=== PATIENT | male | born 1940 | race Caucasian/White ===

== ENCOUNTER 2020-11-13 09:29 | Inpatient (IN) | payer MEDICARE ==
--- NOTE | 2020-11-13 10:07 | RAD ---
EXAM: Single view of the chest HISTORY: Left pneumothorax COMPARISON: CT chest 11/12/2020 FINDINGS: Single view of the chest shows an enlarged cardiomediastinal silhouette. The patient is st atus post aortic valve repair. There may be a small left pleural effusion. No obvious pneumothorax is visualized. No acute osseous abnormality. IMPRESSION: Possible small left pleural effusion without visualization of the left-sided pneumothorax seen on CT
[2020-11-13] MEDS ORDERED: hydrALAZINE 20 MG/ML VIAL SLOW IVP PRN (11:32)
[2020-11-13] MEDS ORDERED: Dextrose 50% Abboject 50 ML SYRINGE SLOW IVP PRN (11:32)
[2020-11-13] MEDS ORDERED: Cyclobenzaprine 10 MG TAB PO PRN (11:32)
[2020-11-13] MEDS ORDERED: Sodium Chloride 0.9% 1,000 ML IV SCH (11:32)
[2020-11-13] MEDS ORDERED: Ondansetron ODT 4 MG TAB PO PRN (11:32)
[2020-11-13] MEDS ORDERED: Ondansetron PF 4 MG/2 ML Vial IVP PRN (11:32)
[2020-11-13] MEDS ORDERED: Dextrose 5% in Water 1,000 ML IV PRN (11:32)
[2020-11-13] MEDS ORDERED: traMADol HCl 50 MG TAB PO PRN ×3 (11:32→17:21)
[2020-11-13] MEDS ORDERED: Morphine 4 MG/ML VIAL ONE (11:40)
[2020-11-13] MEDS ORDERED: Acetaminophen 325 MG TAB ONE (13:43)
[2020-11-13] MEDS: Acetaminophen 325 MG TAB PO SCH ×2 (13:52→18:36)
--- NOTE | 2020-11-13 14:58 | HP ---
HISTORY OF PRESENT ILLNESS: Mr. Coronado is an 80-year-old man, who apparently slipped and fell on ice yesterday landing on his left side. The patient is complaining of left-sided chest wall pain. He underwent a CT scan of the chest yesterday, which revealed multiple left-sided rib fractures with small underlying pneumothorax. He was transferred from [facility] to [place], [place] today complaining of 7 to 8/10 left-sided chest wall pain when he takes a deep breath. He denies any syncope or dyspnea. He denies any abdominal pain. PAST MEDICAL HISTORY: Pertinent for chronic atrial fibrillation, essential hypertension, type 2 diabetes mellitus, and hypothyroidism. 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 FAMILY HISTORY: Noncontributory for this patient's age. CURRENT MEDICATIONS: Include, 1. Levothyroxine 100 mcg p.o. daily. 2. Levocetirizine 5 mg p.o. at bedtime. 3. Amlodipine 5 mg p.o. at bedtime. 4. Bumetanide 1 mg p.o. daily. 5. Amiodarone 200 mg p.o. daily. 6. Januvia 50 mg p.o. daily. 7. Warfarin therapy. 8. Losartan 100 mg p.o. daily. 9. Vitamin D3 of 1000 units two times daily. 10. Viagra 100 mg p.o. p.r.n. ALLERGIES: THE PATIENT DENIES ANY KNOWN DRUG ALLERGIES. REVIEW OF SYSTEMS: Ten-point review of systems essentially unremarkable except as stated in past medical history and chief complaint. PHYSICAL EXAMINATION: GENERAL: This reveals an 80-year-old normally developed man, who is otherwise coherent and interactive and appears stated age. The patient is alert and oriented x3. He appears to be in no acute distress at the time of my evaluation. VITAL SIGNS: Include blood pressure 126/77, pulse is 75 and irregular, respiratory rate is 16, temperature is 98.5 degrees Fahrenheit, oxygen saturation is 91% on room air. HEENT: Pupils are equal, round, reactive to light and accommodation. He has no jugular venous distention noted. HEART: Reveals irregular rate and irregular rhythm. LUNGS: Reveals decrease left basilar breath sounds. Breathing is otherwise regular and nonlabored. He has a chest wall tenderness on the left. No palpable crepitants. ABDOMEN: Soft, nontender, nondistended. Liver and spleen nonpalpable below costal margins. EXTREMITIES: Reveal 2+ radial and pedal pulses bilaterally. No ankle edema is present. NEUROLOGIC: Reveals no focal deficits present. LABORATORY FINDINGS: Today include a CBC with 14,800 white blood cells, hemoglobin and hematocrit 15.7 and 49.8 respectively. Platelet count 159,000. PT and INR 25.4 seconds and 2.3 respectively. Metabolic profile; sodium 140, potassium 4.4, chloride is 103, bicarb 25, BUN 30, creatinine is 1.79. This appears to be the patient's baseline creatinine. Glucose is 141. AST and ALT normal at 20 and 27 respectively. The aforementioned laboratory studies from [facility] obtained yesterday. I have reviewed the CT scan of the chest, abdomen, and pelvis obtained on 11/12/2020 in [place]. This is pertinent for multiple left-sided rib fractures involving ribs 4 through 10 on the left. There is a small left apical pneumothorax present. No significant pneumothorax present. No acute intraabdominal pathology is present. CT scan of the thoracic and lumbar spine revealed no fractures or dislocation. Repeat chest x-ray today reveals no residual pneumothoraces. There is, however, volume loss, which is likely secondary to atelectasis. IMPRESSIONS: 1. Status post ground level fall post-injury day #1. 2. Multiple left rib fractures involving ribs 4 through 10. 3. Posttraumatic pain syndrome. 4. Pulmonary atelectasis. 5. History of chronic fibrillation. 6. History of type 2 diabetes mellitus. PLAN: 1. We will optimize pain management and initiate pulmonary toilet. 2. We will increase activity per Physical and Occupational therapy. 3. We will resume home medications at this time. Anticipate discharge within the next 24 to 48 hours once pain control is achieved. 4. Above findings and plan discussed with the patient and his adult son at bedside. 5. They both indicated understanding of the information provided. 6. I have answered their questions. Job ID: [id number]
[2020-11-13 16:09] VITALS: BMI 24.3
[2020-11-13] MEDS: traMADol HCl 50 MG TAB PO SCH (18:34)
[2020-11-13] MEDS: Gabapentin 100 MG CAP PO SCH (20:25)
[2020-11-14] MEDS: traMADol HCl 50 MG TAB PO SCH ×5 (00:15→18:21)
[2020-11-14] MEDS: Acetaminophen 325 MG TAB PO SCH ×4 (00:19→20:05)
[2020-11-14 06:40] LABS: Anion Gap 12 mmol/L (10-20); BUN (Urea Nitrogen) 26 mg/dL (8.4-25.7); Calc. Creatinine Clearance 43 mL/min (70-130); Calcium 8.4 mg/dL (7.8-10.44); Carbon Dioxide 24 mmol/L (23-31); Chloride 105 mmol/L (98-107); Glucose 147 mg/dL (83-110); Magnesium 2.1 mg/dL (1.6-2.6); Phosphorus 2.5 mg/dL (2.3-4.7); Potassium 4.4 mmol/L (3.5-5.1); Sodium 137 mmol/L (136-145)
[2020-11-14 07:11] LABS: #Eosinphils 0.1 thou/uL (0.0-0.7); #Lymphocytes 0.6 thou/uL (1.20-3.40); #Monocytes 1.3 thou/uL (0.11-0.59); #Neutrophils 9.4 thou/uL (1.40-6.50); %Basophils 0.1 % (0.0-1.0); %Eosinophils 0.9 % (0.0-10.0); %Lymphocytes 4.8 % (21.0-51.0); %Monocytes 11.5 % (0.0-10.0); %Neutrophils 82.7 % (42.0-75.0); Band 1 % (5-11); Hemoglobin 12.8 g/dL (14.0-18.0); Lymphocytes 6 % (21-51); MDiff Complete? YES; Mean Corpuscular HGB CONC 32.6 g/dL (32.0-36.0); Mean Corpuscular Hemoglobin 30.1 pg (27.0-31.0); Mean Corpuscular Volume 92.4 fL (78.0-98.0); Mean Platelet Volume 9.2 fL (7.4-10.4); Monocytes 11 % (0-10); Neutrophil 75 % (42-75); Platelet Count 108 thou/uL (130-400); Platelet Morphology Comment Appears Decreased; Polychromasia SLIGHT = 2-3 cells (100X) (0-2/hpf); RBC Distribution Width 14.1 % (11.5-14.5); Reactive Lymphocytes 7 % (0-10); Red Blood Cell (RBC) Count 4.24 mill/uL (4.70-6.10); White Blood Cell (WBC) Count 11.4 thou/uL (4.8-10.8)
[2020-11-14] MEDS ORDERED: Sodium Phosphate 30 MMOL in Sodium Chloride 0.9% 250 ML 250 ML IVPB SCH (07:30)
[2020-11-14] MEDS: Famotidine 20 MG TAB PO SCH (08:51)
[2020-11-14] MEDS: Gabapentin 100 MG CAP PO SCH ×3 (08:52→20:06)
[2020-11-14] MEDS ORDERED: Enoxaparin Sodium 30 MG/0.3 ML SYRINGE SC SCH (09:00)
[2020-11-14] MEDS ORDERED: Cyclobenzaprine 10 MG TAB PO PRN (09:00)
--- NOTE | 2020-11-14 09:26 | RAD ---
Exam: Chest one view HISTORY:Rib fracture. Hypoxia. Comparison: 11/13/2020 FINDINGS: Cardiac silhouette:Normal cardiac silhouette. Stable sternotomy wires Aorta: Atherosclerosis Pulmonary vessels: Normal Costophrenic angles: Small left effusion LUNGS: Opacity left lung base due to pneumonia or atelectasis or aspiration. Pneumothorax: None Osseous abnormalities: None IMPRESSION: 1. Pleural parenchymal changes left lung base. 2. Atherosclerosis
[2020-11-14 10:03] LABS: INR-International Normal Ratio 1.9; Prothrombin Time 21.8 sec (12.0-14.7)
[2020-11-14] MEDS ORDERED: WARFARIN IVPB PRN (12:30)
--- NOTE | 2020-11-14 14:49 | PRG ---
DATE OF SERVICE: 11/14/2020 Mr. Coronado is an 80-year-old man, who apparently slipped and fell on ice. The patient landed on his left side sustaining multiple rib fractures including ribs 4 through 10. This morning, he reports left-sided chest wall pain, which impairs his ability to take a deep breath or cough. His urinary output is adequate for his age and weight. The patient is tolerating oral intake, although he reports poor appetite this morning. OBJECTIVE: VITAL SIGNS: This morning include blood pressure 129/76, pulse 74, respiratory rate is 18, maximum temperature since admission is 98.4 degrees Fahrenheit, and oxygen saturation 94% on 3.5 L of nasal cannula oxygen. HEENT: Pupils are equal, round, and reactive to light and accommodation. HEART: Reveals irregular rate and rhythm. LUNGS: Reveals scattered rhonchi. Breathing, regular and unlabored. He has a poor cough effort. ABDOMEN: Soft, nontender, and nondistended. NEUROLOGIC: Reveals no focal deficits present. LABORATORY FINDINGS: Include CBC with 11,400 white blood cells, hemoglobin and hematocrit are 12.8 and 39.2 respectively, and the platelet count 108,000. Metabolic profile; sodium 137, potassium 4.4, chloride is 105, bicarb is 24, BUN 26, creatinine is 1.44, glucose is 147, phosphorus 2.5, and magnesium is 2.1. Note that, the patient's creatinine is at baseline. I personally reviewed the chest x-ray, which was obtained this morning, which reveals left basilar atelectasis. No pneumothorax or significant pleural effusion present. IMPRESSION: 1. Post injury day #2, status post ground level fall. 2. Multiple left rib fractures involving ribs 4 through 10. 3. Left pulmonary atelectasis. 4. Chronic kidney disease, stage 3. 5. Type 2 diabetes mellitus. PLAN: 1. Optimize pain control and increase activity and pulmonary toilet. 2. The patient has been encouraged to take deep breaths in and cough once we optimize his pain control in order to minimize his risk for pneumonia. 3. The patient indicates understanding information provided. 4. I have answered his questions. Job ID: [id number]
[2020-11-14] MEDS: Warfarin Sodium 1.5 MG TAB PO SCH (18:20)
[2020-11-15] MEDS: traMADol HCl 50 MG TAB PO SCH ×4 (00:19→17:49)
[2020-11-15] MEDS: Acetaminophen 325 MG TAB PO SCH ×4 (02:09→19:28)
[2020-11-15 05:51] LABS: INR-International Normal Ratio 1.6; Prothrombin Time 19.5 sec (12.0-14.7)
[2020-11-15] MEDS ORDERED: Warfarin Sodium 1.5 MG TAB PO SCH ×2 (09:00→17:00)
[2020-11-15] MEDS: Gabapentin 100 MG CAP PO SCH ×3 (09:57→21:15)
[2020-11-15] MEDS: Famotidine 20 MG TAB PO SCH (09:57)
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
[2020-11-15] MEDS ORDERED: Acetaminophen/Codeine 30-300mg Tablet PO PRN (14:35)
[2020-11-15] MEDS: Warfarin Sodium 2.5 MG TAB PO SCH (17:49)
[2020-11-15 20:33] LABS: SARS-CoV-2 PCR by NAA Indeterminate (NotDetected)
[2020-11-15] MEDS: Loratadine 10 MG TAB PO SCH (21:15)
[2020-11-15] MEDS: Amiodarone 200 MG TAB PO SCH (21:15)
[2020-11-16] MEDS: Acetaminophen 325 MG TAB PO SCH ×4 (00:30→18:05)
[2020-11-16] MEDS: traMADol HCl 50 MG TAB PO SCH ×4 (00:30→17:14)
--- NOTE | 2020-11-16 02:15 | PRG ---
DATE OF SERVICE: 11/16/2020 Mr. Coronado is an 80-year-old male with rib fractures on left side 4 through 10. Patient is on rib fracture pain protocol. The patient's IS at day was at 750. During the evening rounds, patient is only to get incentive spirometer up to 500. I educated the patient about how to use incentive spirometer and repositioned the patient in bed last night. Patient is on room air when I was in the room. Pulse 77, respiratory rate of 18, O2 saturation 93. Job ID: [id number] [facility]
[2020-11-16] MEDS: Levothyroxine Sodium 100 MCG TAB PO SCH (05:22)
[2020-11-16 05:51] LABS: INR-International Normal Ratio 1.8; Prothrombin Time 21.3 sec (12.0-14.7)
[2020-11-16 07:51] LABS: #Eosinphils 0.3 thou/uL (0.0-0.7); #Lymphocytes 0.8 thou/uL (1.20-3.40); #Monocytes 1.4 thou/uL (0.11-0.59); #Neutrophils 9.3 thou/uL (1.40-6.50); %Basophils 0.1 % (0.0-1.0); %Eosinophils 2.7 % (0.0-10.0); %Lymphocytes 6.4 % (21.0-51.0); %Monocytes 12.2 % (0.0-10.0); %Neutrophils 78.6 % (42.0-75.0); Hemoglobin 12.6 g/dL (14.0-18.0); Mean Corpuscular Hemoglobin 30.7 pg (27.0-31.0); Mean Corpuscular Volume 92.9 fL (78.0-98.0); Platelet Count 119 thou/uL (130-400); White Blood Cell (WBC) Count 11.8 thou/uL (4.8-10.8)
[2020-11-16 07:58] LABS: Anion Gap 12 mmol/L (10-20); BUN (Urea Nitrogen) 24 mg/dL (8.4-25.7); Calc. Creatinine Clearance 40 mL/min (70-130); Calcium 8.4 mg/dL (7.8-10.44); Carbon Dioxide 25 mmol/L (23-31); Chloride 104 mmol/L (98-107); Glucose 146 mg/dL (83-110); Phosphorus 3.3 mg/dL (2.3-4.7); Potassium 4.5 mmol/L (3.5-5.1); Sodium 136 mmol/L (136-145)
--- NOTE | 2020-11-16 08:05 | RAD ---
Exam: Chest one view HISTORY:Hypoxia after fall. Follow-up exam. Comparison: 11/14/2020 FINDINGS: Cardiac silhouette:Normal cardiac silhouette. There are sternotomy wires. Aorta: Atherosclerosis Pulmonary vessels: Normal Costophrenic angles: Small left pleural effusion. LUNGS: Image lung volumes, possibly due to a poor inspiratory effort. There is consolidation left inf rahilar region which may represent atelectasis, pneumonia or aspiration. Pneumothorax: None Osseous abnormalities: None rib fractures are difficult to appreciate on the current exam IMPRESSION: 1. Left pleural effusion with adjacent left lower lobe consolidation which may represent atelectasis, pneumonia or aspiration
[2020-11-16] MEDS: Famotidine 20 MG TAB PO SCH (09:13)
[2020-11-16] MEDS: Amlodipine 5 MG TAB PO SCH (09:13)
[2020-11-16] MEDS: Bumetanide 1 MG TAB PO SCH (09:14)
[2020-11-16] MEDS: Gabapentin 100 MG CAP PO SCH ×3 (09:14→21:17)
[2020-11-16] MEDS ORDERED: Dexamethasone 6 MG in Sodium Chloride 0.9% 50 ML IVPB SCH (10:00)
--- NOTE | 2020-11-16 10:46 | PRG ---
DATE OF SERVICE: 11/16/2020 SUBJECTIVE: Mr. Coronado is an 80-year-old man, who was admitted on 11/13/2020 following a ground level fall one day before admission. The patient sustained multiple left-sided rib fractures involving ribs 4 through 10. He is awake and alert this morning, reporting better pain control. He is on nasal cannula oxygen 3.5 L. Urinary output remains adequate for the patient's age and weight. He tolerates general diet. OBJECTIVE: VITAL SIGNS: Includes blood pressure is 112/80, pulse 78, respiratory rate is 16, maximum temperature in the last 24 hours is 99 degrees Fahrenheit, oxygen saturation 93% on 3.5 L nasal cannula oxygen. HEENT: Pupils are equal, round, reactive to light and accommodation. He has no jugular venous distention noted. HEART: Reveals regular rate and rhythm. LUNGS: Reveals diminished left-sided basilar breath sounds. Breathing is otherwise regular and nonlabored. ABDOMEN: Soft, nontender, nondistended. NEUROLOGIC: Reveals no focal deficits present. LABORATORY FINDINGS: Include a CBC with stable white blood cell count of 11,800, hemoglobin and hematocrit also stable at 12.6 and 38.1 respectively. Platelet count is 119,000. Metabolic profile; sodium 136, potassium 4.5, chloride is 104, bicarb is 25, BUN and creatinine stable at 24 and 1.56 respectively and this is the patient's baseline creatinine. Glucose 146, magnesium 2.0, and phosphorus 3.3. I have personally reviewed the chest x-ray, which was obtained this morning, which reveals left-sided pleural opacification. No pneumothorax present. COVID-19 test which was obtained yesterday was deemed indeterminate. I have personally reviewed the noncontrast repeat chest CT scan this morning, which is pertinent for left basilar pulmonary atelectasis with some consolidation. No significant pleural effusion or pneumothorax is present. IMPRESSIONS: 1. Post injury day #4, status post ground level fall. 2. Multiple left rib fractures involving ribs 4 through 10. 3. Acute pulmonary insufficiency secondary to #2. PLAN: 1. Increase pulmonary toilet and bronchodilator therapy. 2. Activity will be increased as tolerated per Physical and Occupational therapy. 3. We will repeat the COVID-19 test and initiate appropriate regimen if COVID-19 pneumonia is determined. 4. Continue with pharmacological and nonpharmacological VTE prophylaxis. 5. Above findings and plan discussed with the patient who indicates understanding of information provided. I answered his questions. Job ID: [id number]
--- NOTE | 2020-11-16 10:53 | CT ---
CT CHEST WITHOUT CONTRAST: INDICATION: Left chest pain. Fall 4 days ago. Pulmonary insufficiency. FINDINGS: Small left pleural effusion. Dense atelectasis/consolidation in the left lower lobe posteriorly. Confluent atelectasis and/or consolidation is also seen in the posterior right lower lobe, although l ess extensive than on the left. Upper lungs are clear. No pneumothorax. Evaluation of the osseous structures showed numerous left-sided rib fractures. There are minimally d isplaced fractures involving the lateral left 3rd, 4th, 5th, 6th, 7th, 8th, and 9th ribs identified. The thoracic vertebrae maintain height and alignment. There are degenerative changes in the thoracic spine with degenerative disk changes. Postop sternotomy change. Images through the upper abdomen are unremarkable. IMPRESSION: 1. Multiple left side rib fractures as described above. 2. Dense atelectasis/consolidation with air bronchograms in the posterior left lower lobe with small left effusion. 3. Mild left basilar atelectasis or infiltrate in the posterior right lung base. POS: AGW
[2020-11-16] MEDS: Warfarin Sodium 1.5 MG TAB PO SCH (17:14)
[2020-11-16] MEDS: Loratadine 10 MG TAB PO SCH (21:17)
[2020-11-16] MEDS: Amiodarone 200 MG TAB PO SCH (21:17)
[2020-11-16 21:53] LABS: SARS-CoV-2 PCR by NAA DETECTED (NotDetected)
[2020-11-17] MEDS: traMADol HCl 50 MG TAB PO SCH ×5 (00:49→23:07)
[2020-11-17] MEDS: Acetaminophen 325 MG TAB PO SCH ×5 (00:50→23:08)
[2020-11-17] MEDS: Senokot 8.6 MG TAB PO SCH ×2 (00:51→20:25)
--- NOTE | 2020-11-17 01:32 | PRG ---
DATE OF SERVICE: 11/17/2020 SUBJECTIVE: Mr. Coronado is an 80-year-old male, status post ground level fall; rib fractures, left side [address] was done today, which shows dense atelectasis, consolidation with air bronchograms, left lower lobe, small left effusion. Mild left basal atelectasis, infiltrates, posterior lung base. The patient had a repeat COVID test, which was inconclusive. Repeat COVID test is positive. The patient's pain regimen was adjusted again today and bronchodilator therapy was adjusted as well. The patient is resting comfortably in bed, no acute distress. O2 saturation 94% on 3 L nasal cannula. Increases to O2 saturation of 96% when coughing. OBJECTIVE: VITAL SIGNS: Temperature 98.2, pulse 92, respiratory rate 18, O2 saturation 94% on 3 L, and blood pressure 131/81. GENERAL: The patient is sitting upright in bed, in no acute distress. Breathing comfortably. No pain. LUNGS: No wheezes or crackles. CARDIAC: Normal sinus rhythm. PLAN: Continue incentive spirometer. Repeat COVID labs in the a.m., order convalescent plasma transfused. Continue mechanical and pharmacological DVT prophylaxis. Job ID: [id number] [facility]
[2020-11-17] MEDS: Levothyroxine Sodium 100 MCG TAB PO SCH (05:22)
[2020-11-17 07:18] LABS: #Lymphocytes 0.4 thou/uL (1.20-3.40); #Monocytes 0.9 thou/uL (0.11-0.59); #Neutrophils 8.9 thou/uL (1.40-6.50); %Basophils 0.1 % (0.0-1.0); %Eosinophils 0.3 % (0.0-10.0); %Lymphocytes 3.7 % (21.0-51.0); %Neutrophils 86.8 % (42.0-75.0); Hemoglobin 11.3 g/dL (14.0-18.0); Mean Corpuscular HGB CONC 32.2 g/dL (32.0-36.0); Mean Corpuscular Hemoglobin 29.5 pg (27.0-31.0); Mean Corpuscular Volume 91.8 fL (78.0-98.0); Mean Platelet Volume 9.1 fL (7.4-10.4); Platelet Count 133 thou/uL (130-400); Red Blood Cell (RBC) Count 3.84 mill/uL (4.70-6.10); White Blood Cell (WBC) Count 10.2 thou/uL (4.8-10.8)
[2020-11-17 07:21] LABS: Prothrombin Time 22.6 sec (12.0-14.7)
[2020-11-17 07:23] LABS: D-Dimer Test 2.85 *mcg/mL (0.27-0.43)
[2020-11-17 07:37] LABS: Anion Gap 13 mmol/L (10-20); BUN (Urea Nitrogen) 33 mg/dL (8.4-25.7); Calc. Creatinine Clearance 36 mL/min (70-130); Calcium 8.8 mg/dL (7.8-10.44); Carbon Dioxide 25 mmol/L (23-31); Chloride 101 mmol/L (98-107); Glucose 231 mg/dL (83-110); Magnesium 2.3 mg/dL (1.6-2.6); Phosphorus 3.3 mg/dL (2.3-4.7); Potassium 4.3 mmol/L (3.5-5.1); Sodium 135 mmol/L (136-145)
[2020-11-17] MEDS: Bumetanide 1 MG TAB PO SCH (08:40)
[2020-11-17] MEDS: Famotidine 20 MG TAB PO SCH (08:40)
[2020-11-17] MEDS: Gabapentin 100 MG CAP PO SCH ×3 (08:41→20:25)
[2020-11-17] MEDS: Docusate 100 MG CAP PO SCH ×2 (08:43→20:27)
[2020-11-17] MEDS: Cholecalciferol (Vitamin D3) 400 UNITS TAB PO SCH (08:43)
[2020-11-17] MEDS: Amlodipine 5 MG TAB PO SCH (08:43)
[2020-11-17] MEDS ORDERED: Dexamethasone 6 MG in Sodium Chloride 0.9% 50 ML IVPB SCH (09:00)
[2020-11-17] MEDS: Mometasone 100 MCG/Formoterol 5 MCG 120 PUFF INHALER INH SCH (17:07)
[2020-11-17] MEDS: Warfarin Sodium 2.5 MG TAB PO SCH (17:07)
[2020-11-17] MEDS: Amiodarone 200 MG TAB PO SCH (20:26)
[2020-11-17] MEDS: Loratadine 10 MG TAB PO SCH (20:27)
--- NOTE | 2020-11-18 00:35 | PRG ---
DATE OF SERVICE: 11/17/2020 SUBJECTIVE: Mr. Coronado is an 80-year-old male who was seen to have multiple left-sided rib fracture 4 through 10. He is awake and alert. No acute distress. Actually was able to turn his oxygen off this morning. Of note, he was COVID positive. He has been moved to 4th floor, received 1 unit of convalescent plasma. He is on dexamethasone as well as zinc and vitamin D currently. States his pain is generally under control. He has been ambulating and doing well. He remains hemodynamically stable otherwise. OBJECTIVE: VITAL SIGNS: Temperature is 97.5, blood pressure is 169/84, heart rate is 84, respiratory rate is 16, saturating 98% on room air. GENERAL: This is 80-year-old male, sitting up in no acute distress. HEENT: Normocephalic, atraumatic. RESPIRATORY: Equal rise and fall. No respiratory distress. Getting close to 1500 on his IS. No wheezes, no rhonchi. Clear lung sounds. CARDIOVASCULAR: Regular rate and rhythm. ABDOMEN: Soft. PELVIS: Stable. MUSCULOSKELETAL: Moves extremities well. PSYCH: Normal mood and affect. NEURO: Alert and oriented to person, place, time, and event. and GCS of 15. DIAGNOSTIC STUDIES: LABORATORY RESULTS: White blood cell count 10.2, platelets 133, hemoglobin and hematocrit 11.3 and 35.2 respectively. His INR is 2.0. D-dimer is 2.85 and a PT of 22.6. Sodium is 135, potassium 4.3, chloride is 101, CO2 is 25, BUN of 33, creatinine is 1.74, glucose is 231. CRP is 1963. IMAGING: CT scan showed multiple left-sided rib fractures described above. Dense atelectasis consolidation with air bronchograms in the posterior left lobe. Small effusion, likely hemothorax. Mild left basilar atelectasis and infiltrates in the right lobe. ASSESSMENT: 1. Post injury day #5, status post ground level fall. 2. Multiple left rib fractures 4 through 10. 3. Acute pulmonary insufficiency, likely #2. 4. SARS COVID-19 positive without true evidence of COVID pneumonia. PLAN: 1. Continue pulmonary toilet. 2. Wean oxygen as necessary, continue with PT/OT. 3. We will repeat chest x-ray tomorrow, make sure that his hemothorax is not getting bigger. Given he is on Coumadin, which I think may be prudent given his COVID diagnosis. 4. Continue all other supportive care. Hope to plan discharge planning in the ensuing days. Job ID: [id number]
[2020-11-18] MEDS: Mometasone 100 MCG/Formoterol 5 MCG 120 PUFF INHALER INH SCH ×2 (05:45→18:11)
[2020-11-18] MEDS: Levothyroxine Sodium 100 MCG TAB PO SCH (05:46)
[2020-11-18] MEDS: traMADol HCl 50 MG TAB PO SCH ×3 (05:46→17:17)
[2020-11-18] MEDS: Acetaminophen 325 MG TAB PO SCH ×3 (05:48→18:10)
[2020-11-18 06:56] LABS: Anion Gap 13 mmol/L (10-20); BUN (Urea Nitrogen) 42 mg/dL (8.4-25.7); Calc. Creatinine Clearance 37 mL/min (70-130); Calcium 8.8 mg/dL (7.8-10.44); Carbon Dioxide 25 mmol/L (23-31); Chloride 102 mmol/L (98-107); Glucose 182 mg/dL (83-110); Magnesium 2.3 mg/dL (1.6-2.6); Phosphorus 3.6 mg/dL (2.3-4.7); Potassium 4.2 mmol/L (3.5-5.1); Sodium 136 mmol/L (136-145)
[2020-11-18] MEDS: Bumetanide 1 MG TAB PO SCH (09:20)
[2020-11-18] MEDS: Famotidine 20 MG TAB PO SCH (09:20)
[2020-11-18] MEDS: Amlodipine 5 MG TAB PO SCH (09:20)
[2020-11-18] MEDS: Dexamethasone Sod Phosphate 6 MG in Sodium Chloride 0.9% 50 ML IVPB SCH (09:20)
[2020-11-18] MEDS: Cholecalciferol (Vitamin D3) 400 UNITS TAB PO SCH (09:21)
[2020-11-18] MEDS: Gabapentin 100 MG CAP PO SCH ×3 (09:21→20:06)
[2020-11-18] MEDS: Docusate 100 MG CAP PO SCH ×2 (09:22→20:07)
--- NOTE | 2020-11-18 09:35 | RAD ---
PORTABLE CHEST: COMPARISON: 11/16/2020 exam. FINDINGS: Heart size is slightly enlarged. Postop sternotomy change of what appears to be some type of valve r eplacement. The lungs are clear of any infiltrative process. There is some slight increased density in the left base which his probably related to small effusion and atelectasis which was noted on a p revious CT. I do not see any signs of pneumothorax. Left-sided rib fractures are somewhat difficult to appreciate on this exam. IMPRESSION: Some persistent pleural and parenchymal changes in the left lung base. No signs for pneumothorax. POS: OFF
[2020-11-18] MEDS ORDERED: Milk Of Magnesia 30 ML UDCUP PO SCH (12:30)
--- NOTE | 2020-11-18 17:33 | PRG ---
DATE OF SERVICE: 11/18/2020 SUBJECTIVE: Mr. Coronado is an 80-year-old male, who is hospital day #5 status post ground level fall with multiple left-sided rib fractures. Acute pulmonary insufficiency. SARS-COVID positive. The patient is now off oxygen overnight, stating that he feels better. He is working on IS. He is walking around the room. He did have some delirium overnight and was found walking around the halls looking for his . The patient has no acute distress. States his pain is generally controlled. His chest x-ray is stable appearing and glucose seems to be stabilizing. OBJECTIVE: VITAL SIGNS: Temperature is 97.9, blood pressure is 129/75, heart rate is 71, breathing 20 times per minute, 97% on room air. GENERAL: An 80-year-old male, sitting up, nontoxic appearing. HEENT: Normocephalic, atraumatic. RESPIRATORY: Equal rise and fall. Bilateral breath sounds clear. CARDIOVASCULAR: Strong pulses. ABDOMEN: Soft. MUSCULOSKELETAL: He moves his extremities well. PSYCH: Normal mood and affect. NEURO: Alert and oriented. GCS is 15. SKIN: Warm and dry. LABORATORY DATA: Chemistry; sodium is 136, potassium 4.2, CO2 is 25, chloride is 102, BUN of 42, creatinine is 1.7, glucose is 182, phos is 3.6, mag is 2.3. Chest x-ray demonstrates minimal change on my read. There is some likely a small hemothorax in the left lung base. ASSESSMENT: 1. Post injury day #6, status post ground level fall. 2. Multiple left rib fractures. 3. Acute pulmonary insufficiency secondary to #2 above. 4. SARS-COVID positive without evidence of COVID pneumonia. PLAN: 1. Continue aggressive pulmonary toilet. 2. Continue to work with IS. 3. Oxygen as needed. He was 89% on room air on my visit. Discussed with RN. 4. Continue pain control, PT, OT. Continue insulin treatment as above and hope if he remains off oxygen and oxygen levels remain stable, he will be discharge in the ensuing days. I have discussed at length with the patient about isolating at home for minimum of 10 days after his positive test given his COVID results. Of note, he is scheduled on December 04 for his 2nd COVID-19 vaccine. He does live with his who is at this time COVID negative. Job ID: [id number]
[2020-11-18] MEDS: Warfarin Sodium 1.5 MG TAB PO SCH (18:10)
[2020-11-18] MEDS: Loratadine 10 MG TAB PO SCH (20:07)
[2020-11-18] MEDS: Amiodarone 200 MG TAB PO SCH (20:07)
[2020-11-19] MEDS: Acetaminophen 325 MG TAB PO SCH ×3 (00:37→13:41)
[2020-11-19] MEDS: traMADol HCl 50 MG TAB PO SCH ×4 (00:37→17:44)
[2020-11-19] MEDS: Levothyroxine Sodium 100 MCG TAB PO SCH (06:03)
[2020-11-19] MEDS: Mometasone 100 MCG/Formoterol 5 MCG 120 PUFF INHALER INH SCH ×2 (06:04→18:12)
[2020-11-19 06:47] LABS: INR-International Normal Ratio 2.7; Prothrombin Time 29.3 sec (12.0-14.7)
[2020-11-19] MEDS: Cholecalciferol (Vitamin D3) 400 UNITS TAB PO SCH (08:54)
[2020-11-19] MEDS: Famotidine 20 MG TAB PO SCH (08:54)
[2020-11-19] MEDS: Amlodipine 5 MG TAB PO SCH (08:54)
[2020-11-19] MEDS: Docusate 100 MG CAP PO SCH (08:55)
[2020-11-19] MEDS: Gabapentin 100 MG CAP PO SCH ×2 (08:55→14:42)
[2020-11-19] MEDS: Bumetanide 1 MG TAB PO SCH (08:58)
[2020-11-19] MEDS: Dexamethasone Sod Phosphate 6 MG in Sodium Chloride 0.9% 50 ML IVPB SCH (08:58)
[2020-11-19] MEDS ORDERED: Milk Of Magnesia 30 ML UDCUP PO SCH (09:00)
[2020-11-19 17:02] VITALS: BP 146/90; TEMP 97.8
[2020-11-19] MEDS ORDERED: Warfarin Sodium 3 MG TAB PO SCH (18:15)
[2020-11-19] MEDS: Warfarin Sodium 1.5 MG TAB PO SCH (18:16)
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
[2020-11-21] MEDS ORDERED: Warfarin Sodium 3 MG TAB PO SCH (17:00)
== END 2020-11-19 18:22 | disposition home or self-care (01) | DRG 199 ==
LOC: ERS 09:29 → ERHOLD 11:32 → SJJU 15:35 → T4-A 11-17 00:15
PROVIDERS: ADMIT Surgery; ATTEND Surgery
PROC: XW13325 Transfusion of Convalescent Plasma (Nonautologous) into Peripheral Vein, Percutaneous Approach, New Technology Group 5 (ICD-10-PCS; principal; 2020-11-17)
DX: S27.0XXA Traumatic pneumothorax, initial encounter (principal); J96.01 Acute respiratory failure with hypoxia; U07.1 COVID-19; S22.42XA Multiple fractures of ribs, left side, initial encounter for closed fracture; J98.11 Atelectasis; I48.20 Chronic atrial fibrillation, unspecified; W01.0XXA Fall on same level from slipping, tripping and stumbling without subsequent striking against object, initial encounter; E11.22 Type 2 diabetes mellitus with diabetic chronic kidney disease; N18.30 Chronic kidney disease, stage 3 unspecified; J98.4 Other disorders of lung; I12.9 Hypertensive chronic kidney disease with stage 1 through stage 4 chronic kidney disease, or unspecified chronic kidney disease; E03.9 Hypothyroidism, unspecified; Z95.2 Presence of prosthetic heart valve; Z79.899 Other long term (current) drug therapy; Z79.890 Hormone replacement therapy; Z79.4 Long term (current) use of insulin; Z79.02 Long term (current) use of antithrombotics/antiplatelets
CPT/HCPCS: 36415; 36416; 36430; 71045; 71250; 80048; 83735; 84100; 85025; 85379; 85610; 86140; 86850; 86900; 86901; 87635; 96374; G0390; J1100; J2270; J7050; J7620; P9017; U0003; U0005

== ENCOUNTER 2021-06-25 16:50 | Emergency (ER) | payer OTHER, MEDICARE | END 2021-06-25 20:35 | disposition home or self-care (01) | LOC: ERS 16:50 | DX: S90.02XA Contusion of left ankle, initial encounter (principal); I10 Essential (primary) hypertension; I48.91 Unspecified atrial fibrillation; E11.9 Type 2 diabetes mellitus without complications; W01.0XXA Fall on same level from slipping, tripping and stumbling without subsequent striking against object, initial encounter ==

== ENCOUNTER 2021-06-27 07:24 | Outpatient (CLI) | payer MEDICARE | END 2021-06-27 07:25 | disposition home or self-care (01) | LOC: BICCT 07:24 | PROVIDERS: ATTEND Internal Medicine Cardiovascular Disease | DX: I77.810 Thoracic aortic ectasia (principal) | CPT/HCPCS: 71275; 82565 ==

== ENCOUNTER 2022-11-12 07:49 | Outpatient (CLI) | payer MEDICARE | END 2022-11-12 07:50 | disposition home or self-care (01) | LOC: BICCT 07:49 | PROVIDERS: ATTEND Internal Medicine Cardiovascular Disease | DX: I77.810 Thoracic aortic ectasia (principal); I25.10 Atherosclerotic heart disease of native coronary artery without angina pectoris; E04.1 Nontoxic single thyroid nodule | CPT/HCPCS: 71250 ==

== ENCOUNTER 2023-05-05 08:22 | Outpatient (CLI) | payer MEDICARE | END 2023-05-05 08:23 | disposition home or self-care (01) | LOC: BICMRI 08:22 | PROVIDERS: ATTEND Family Medicine | DX: M51.16 Intervertebral disc disorders with radiculopathy, lumbar region (principal); M47.816 Spondylosis without myelopathy or radiculopathy, lumbar region; M89.38 Hypertrophy of bone, other site | CPT/HCPCS: 72148 ==

== ENCOUNTER 2024-03-13 11:43 | Emergency (ER) | payer MEDICARE | END 2024-03-13 15:10 | disposition home or self-care (01) | LOC: ERS 11:43 | DX: R33.9 Retention of urine, unspecified (principal); I48.91 Unspecified atrial fibrillation; E11.9 Type 2 diabetes mellitus without complications; I10 Essential (primary) hypertension | CPT/HCPCS: 51798; 99283 ==

== ENCOUNTER 2024-03-15 10:01 | Inpatient (IN) | payer MEDICARE ==
[~2024-03-15 10:01] MED LIST: Iopamidol-370 76% 500 ML MDV (1 ML CHARGE) ONE
[2024-03-15] MEDS ORDERED: Dicyclomine 20 MG/2 ML VIAL ONE (10:34)
[2024-03-15 10:40] LABS: #Basophils 0.03 10x3/uL (0.0-0.2); %Basophils 0.2 % (0.0-1.0); %Eosinophils 1.1 % (0.0-10.0); %Lymphocytes 4.5 % (21.0-51.0); %Monocytes 7.2 % (0.0-10.0); %Neutrophils 86.6 % (42.0-75.0); Hematocrit 43.5 % (42.0-52.0); Hemoglobin 14.1 g/dL (14.0-18.0); Mean Corpuscular HGB CONC 32.4 g/dL (32.0-36.0); Mean Corpuscular Hemoglobin 29.4 pg (27.0-31.0); Mean Corpuscular Volume 90.6 fL (78.0-98.0); Mean Platelet Volume 10.4 fL (7.4-10.4); Platelet Count 171 10x3/uL (130-400); RBC Distribution Width 15.3 % (11.5-14.5)
[2024-03-15 10:58] LABS: ALT (SGPT) 23 U/L (8-55); AST (SGOT) 22 U/L (5-34); Albumin 3.7 g/dL (3.4-4.8); Alkaline Phosphatase 68 U/L (40-110); Anion Gap 12 mmol/L (10-20); BUN (Urea Nitrogen) 35 mg/dL (8.4-25.7); Bilirubin, Total 0.7 mg/dL (0.2-1.2); Calc. Creatinine Clearance 0 mL/min (70-130); Calcium 9.5 mg/dL (7.8-10.44); Carbon Dioxide 25 mmol/L (23-31); Chloride 106 mmol/L (98-107); Estimated GFR 42; Globulin 2.8 g/dL (2.4-3.5); Glucose 185 mg/dL (83-110); Lipase 29 U/L (8-78); Magnesium 2.8 mg/dL (1.6-2.6); Potassium 3.9 mmol/L (3.5-5.1); Protein, Total 6.5 g/dL (5.8-8.1); Sodium 139 mmol/L (136-145)
[2024-03-15 11:03] LABS: Troponin I 0.033 ng/mL (< 0.028)
[2024-03-15 11:17] LABS: Bacteria/HPF None Seen HPF (None Seen); Bilirubin Negative (Negative); Blood, Urine 1+ (Negative); CAUTI Indications for Culture Dysuria,urgency,freq; Clarity Turbid (Clear); Glucose, Urine (Dipstick) 30 mg/dL (Negative); Ketone, Urine Negative (Negative); Leukocyte 25 Leu/uL (Negative); Nitrite Negative (Negative); Protein, Urine (Dipstick) 30 mg/dL (Neg-Trace); RBC/HPF 21-50 HPF (0-3); Specific Gravity, Urine 1.018 (1.002-1.036); Squamous Epithelial None Seen HPF (0-3)
[2024-03-15 11:20] LABS: Urine Culture Reflex No No
[2024-03-15] MEDS ORDERED: Aspirin 325 MG TAB ONE (12:28)
[2024-03-15] MEDS ORDERED: Ondansetron PF 4 MG/2 ML Vial ONE (12:29)
[2024-03-15] MEDS ORDERED: Morphine 4 MG/ML VIAL ONE (12:29)
[2024-03-15] MEDS ORDERED: Acetaminophen 650 MG Suppository PR PRN (12:35)
[2024-03-15] MEDS ORDERED: Ondansetron PF 4 MG/2 ML Vial IVP PRN (12:35)
[2024-03-15] MEDS ORDERED: HYDROcodone/Acetaminophen 5/325 mg Tablet PO PRN (12:35)
[2024-03-15] MEDS ORDERED: Acetaminophen 325 MG TAB PO PRN (12:35)
[2024-03-15] MEDS ORDERED: Ondansetron ODT 4 MG TAB PO PRN (12:35)
[2024-03-15] MEDS ORDERED: Nitroglycerin 0.4 MG TAB (25 Tab Bottle) SL PRN (12:37)
[2024-03-15 14:50] LABS: Troponin I 0.035 ng/mL (< 0.028)
[2024-03-15 20:51] VITALS: BMI 22.4
[2024-03-15] MEDS: Loratadine 10 MG TAB PO SCH (21:09)
[2024-03-15] MEDS: Famotidine 20 MG TAB PO SCH (21:09)
[2024-03-15] MEDS: Atorvastatin Calcium 40 MG TAB PO SCH (21:09)
[2024-03-15] MEDS: Senokot S 8.6-50 MG TAB PO SCH (21:09)
[2024-03-15] MEDS: Apixaban 2.5 MG TAB PO SCH (21:09)
[2024-03-16 04:11] LABS: #Basophils 0.03 10x3/uL (0.0-0.2); %Basophils 0.3 % (0.0-1.0); %Eosinophils 1.2 % (0.0-10.0); %Lymphocytes 4.3 % (21.0-51.0); %Monocytes 9.5 % (0.0-10.0); %Neutrophils 84.3 % (42.0-75.0); Hematocrit 40.5 % (42.0-52.0); Mean Corpuscular HGB CONC 32.1 g/dL (32.0-36.0); Mean Corpuscular Hemoglobin 29.4 pg (27.0-31.0); Mean Corpuscular Volume 91.6 fL (78.0-98.0); Mean Platelet Volume 10.7 fL (7.4-10.4); Platelet Count 158 10x3/uL (130-400); RBC Distribution Width 15.2 % (11.5-14.5); Red Blood Cell (RBC) Count 4.42 mill/uL (4.70-6.10)
[2024-03-16 04:19] LABS: Hemoglobin A1c 6.5 % (4.0-6.0)
[2024-03-16 04:55] LABS: Anion Gap 15 mmol/L (10-20); BUN (Urea Nitrogen) 25 mg/dL (8.4-25.7); Calc. Creatinine Clearance 39 mL/min (70-130); Calcium 8.7 mg/dL (7.8-10.44); Carbon Dioxide 22 mmol/L (23-31); Cardiac Risk 3.2 (Less than 4.5); Chloride 108 mmol/L (98-107); Cholesterol 90 mg/dl (< 200 Desired); Estimated GFR 50; Glucose 165 mg/dL (83-110); HDL Cholesterol 28 mg/dL (>60 Neg Risk); LDL Cholesterol, Calculated 43 mg/dL; Potassium 4.3 mmol/L (3.5-5.1); Sodium 141 mmol/L (136-145); Triglycerides 96 mg/dL (Less than 150)
[2024-03-16] MEDS: NIFEdipine XL 60 MG ER.TAB PO SCH (08:43)
[2024-03-16] MEDS: Polyethylene Glycol 3350 17 GM Packet PO SCH (08:43)
[2024-03-16] MEDS: Dextrose 5 % And 0.9 % NaCl 1,000 ML IV SCH (08:43)
[2024-03-16] MEDS: Aspirin 81 mg Enteric Coated Tablet PO SCH (08:44)
[2024-03-16] MEDS: Losartan 25 MG TAB PO SCH (08:44)
[2024-03-16] MEDS: Levothyroxine Sodium 100 MCG TAB PO SCH (08:48)
[2024-03-16] MEDS ORDERED: Aspirin Chewable 81 MG TAB PO SCH (09:00)
[2024-03-16] MEDS ORDERED: NIFEdipine XL 60 MG ER.TAB PO SCH (09:00)
[2024-03-16] MEDS ORDERED: Bacitracin 1 PK TOP PRN (12:45)
[2024-03-16] MEDS: Bacitracin 1 PK TOP SCH (20:17)
[2024-03-17 04:12] VITALS: TEMP 97.7
[2024-03-17] MEDS ORDERED: Levothyroxine Sodium 100 MCG TAB PO SCH (06:00)
[2024-03-17] MEDS: Levothyroxine Sodium 88 MCG TAB PO SCH (06:06)
[2024-03-17 09:26] VITALS: BP 134/87
[2024-03-17] MEDS: Famotidine 20 MG TAB PO SCH (09:34)
[2024-03-17] MEDS ORDERED: NIFEdipine XL 60 MG ER.TAB PO SCH (21:00)
== END 2024-03-17 11:35 | disposition home or self-care (01) | DRG 392 ==
LOC: ERS 10:01 → ERHOLD 12:51 → 2SW 20:14 → OBSVTOIN 03-16 12:46
PROVIDERS: ADMIT Family Medicine; ATTEND Internal Medicine
DX: K59.00 Constipation, unspecified (principal); K40.90 Unilateral inguinal hernia, without obstruction or gangrene, not specified as recurrent; E03.9 Hypothyroidism, unspecified; I48.0 Paroxysmal atrial fibrillation; I25.10 Atherosclerotic heart disease of native coronary artery without angina pectoris; R79.89 Other specified abnormal findings of blood chemistry; E11.22 Type 2 diabetes mellitus with diabetic chronic kidney disease; E78.5 Hyperlipidemia, unspecified; I12.9 Hypertensive chronic kidney disease with stage 1 through stage 4 chronic kidney disease, or unspecified chronic kidney disease; N18.32 Chronic kidney disease, stage 3b; E86.0 Dehydration; Z88.8 Allergy status to other drugs, medicaments and biological substances; Z79.01 Long term (current) use of anticoagulants; Z79.82 Long term (current) use of aspirin; Z95.2 Presence of prosthetic heart valve; Z79.890 Hormone replacement therapy; Z95.5 Presence of coronary angioplasty implant and graft; Z79.84 Long term (current) use of oral hypoglycemic drugs; R33.9 Retention of urine, unspecified; I48.91 Unspecified atrial fibrillation; E11.9 Type 2 diabetes mellitus without complications; I10 Essential (primary) hypertension
CPT/HCPCS: 36415; 36416; 51798; 74177; 80048; 80053; 80061; 81001; 83036; 83605; 83690; 83735; 83880; 84439; 84443; 84484; 85025; 93005; 94760; 96372; 96374; 96375; 99283; G0378; J2270; J2405; J7042; Q9967

== ENCOUNTER 2024-06-30 15:21 | Inpatient (IN) | payer MEDICARE ==
[2024-06-30] MEDS ORDERED: Diltiazem HCl/D5W 125 ML ONE (15:35)
[2024-06-30] MEDS ORDERED: dilTIAZem 25 MG/5 ML VIAL ONE (15:36)
[2024-06-30 15:47] LABS: #Basophils 0.03 10x3/uL (0.0-0.2); %Basophils 0.3 % (0.0-1.0); %Lymphocytes 5.4 % (21.0-51.0); %Monocytes 9.4 % (0.0-10.0); %Neutrophils 83.6 % (42.0-75.0); Hematocrit 41.3 % (42.0-52.0); Hemoglobin 13.2 g/dL (14.0-18.0); Mean Corpuscular Volume 87.7 fL (78.0-98.0); Mean Platelet Volume 10.7 fL (7.4-10.4); Platelet Count 115 10x3/uL (130-400); RBC Distribution Width 16.4 % (11.5-14.5); Red Blood Cell (RBC) Count 4.71 mill/uL (4.70-6.10)
[2024-06-30 15:58] LABS: INR-International Normal Ratio 1.3; PTT 32.7 sec (22.9-36.1); Prothrombin Time 15.8 sec (12.0-14.7)
[2024-06-30 16:03] LABS: Troponin I 0.041 ng/mL (< 0.028)
[2024-06-30] MEDS ORDERED: Amiodarone 150 MG/3 ML VIAL ONE (16:12)
[2024-06-30 16:43] LABS: ALT (SGPT) 18 U/L (8-55); AST (SGOT) 19 U/L (5-34); Albumin 3.4 g/dL (3.4-4.8); Alkaline Phosphatase 78 U/L (40-110); Anion Gap 15 mmol/L (10-20); BUN (Urea Nitrogen) 25 mg/dL (8.4-25.7); Bilirubin, Total 0.5 mg/dL (0.2-1.2); Calc. Creatinine Clearance 0 mL/min (70-130); Calcium 8.5 mg/dL (7.6-10.4); Carbon Dioxide 19 mmol/L (23-31); Chloride 112 mmol/L (98-107); Estimated GFR 54; Globulin 2.4 g/dL (2.4-3.5); Glucose 125 mg/dL (83-110); Potassium 3.5 mmol/L (3.5-5.1); Protein, Total 5.8 g/dL (5.8-8.1); Sodium 142 mmol/L (136-145)
[2024-06-30 17:11] LABS: ALV-art Gradient 84.115 mmHg (0-20); Actual Bicarbonate (HCO3a) 17.9 mEq/L (22-28); CO2 Tension 27.7 mmHg (35.0-45.0); Calcium, Ionized (arterial) 1.09 mmol/L (1.12-1.30); Carboxyhemoglobin (COHb) 0.6 gm% (0.0-3.0); Hematocrit-ABG 38 % (42.0-52.0); O2 Tension (PaO2), arterial 80.9 mmHg (> 60.0); Potassium - ABG Lab 3.61 mmol/L (3.70-5.30); Puncture Site Left Radial artery; pH, Arterial 7.428 (7.35-7.45)
[2024-06-30] MEDS ORDERED: Digoxin 0.5 MG/2 ML AMP ONE (18:05)
[2024-06-30] MEDS ORDERED: Calcium Carbonate 500 MG ChewTAB PO PRN (19:10)
[2024-06-30 19:53] LABS: Troponin I 0.244 ng/mL (< 0.028)
[2024-06-30 22:06] LABS: Troponin I 0.377 ng/mL (< 0.028)
[2024-07-01] MEDS: Amiodarone 450 MG, Admixture Fee 1 EACH in Dextrose 5% in Water 250 ML IVPB SCH (01:20)
[2024-07-01] MEDS ORDERED: Atorvastatin Calcium 40 MG TAB ONE (02:27)
[2024-07-01] MEDS: Apixaban 2.5 MG TAB PO SCH ×3 (02:45→10:12)
[2024-07-01] MEDS: Atorvastatin Calcium 40 MG TAB PO SCH ×3 (02:46→21:04)
[2024-07-01] MEDS: Levothyroxine Sodium 88 MCG TAB PO SCH (05:32)
[2024-07-01 06:32] LABS: #Basophils 0.03 10x3/uL (0.0-0.2); %Basophils 0.4 % (0.0-1.0); %Eosinophils 2.3 % (0.0-10.0); %Lymphocytes 9.8 % (21.0-51.0); %Neutrophils 75.2 % (42.0-75.0); Hematocrit 39.5 % (42.0-52.0); Hemoglobin 12.4 g/dL (14.0-18.0); Mean Corpuscular HGB CONC 31.4 g/dL (32.0-36.0); Mean Corpuscular Hemoglobin 27.7 pg (27.0-31.0); Mean Corpuscular Volume 88.4 fL (78.0-98.0); Mean Platelet Volume 11.7 fL (7.4-10.4); Platelet Count 120 10x3/uL (130-400); RBC Distribution Width 16.7 % (11.5-14.5); Red Blood Cell (RBC) Count 4.47 mill/uL (4.70-6.10)
[2024-07-01 06:35] LABS: ALT (SGPT) 15 U/L (8-55); AST (SGOT) 17 U/L (5-34); Alkaline Phosphatase 62 U/L (40-110); Anion Gap 10 mmol/L (10-20); BUN (Urea Nitrogen) 21 mg/dL (8.4-25.7); Bilirubin, Total 0.7 mg/dL (0.2-1.2); Calc. Creatinine Clearance 46 mL/min (70-130); Calcium 8.5 mg/dL (7.8-10.44); Carbon Dioxide 22 mmol/L (23-31); Chloride 113 mmol/L (98-107); Estimated GFR 54; Globulin 2.1 g/dL (2.4-3.5); Glucose 94 mg/dL (83-110); Magnesium 2.1 mg/dL (1.6-2.6); Potassium 3.9 mmol/L (3.5-5.1); Protein, Total 5.1 g/dL (5.8-8.1); Sodium 141 mmol/L (136-145)
[2024-07-01] MEDS ORDERED: Aspirin Chewable 81 MG TAB ONE (08:59)
[2024-07-01] MEDS: Aspirin 81 mg Enteric Coated Tablet PO SCH (09:02)
[2024-07-01] MEDS: Saxagliptin 2.5 MG TAB PO SCH (10:07)
[2024-07-01 13:37] LABS: Troponin I 0.647 ng/mL (< 0.028)
[2024-07-01] MEDS: Amiodarone 150 MG in Dextrose 5% in Water 100 ML IVPB SCH (17:34)
[2024-07-01 18:04] VITALS: BMI 23.8
[2024-07-01] MEDS ORDERED: Glucagon 1 MG/ML KIT IM PRN (18:11)
[2024-07-01] MEDS ORDERED: Dextrose 5% in Water 1,000 ML IV PRN (18:11)
[2024-07-01] MEDS ORDERED: Dextrose 50% Abboject 50 ML SYRINGE SLOW IVP PRN (18:11)
[2024-07-01] MEDS: Apixaban 5 MG TAB PO SCH (21:04)
[2024-07-01] MEDS: Acetaminophen 325 MG TAB PO PRN (23:00)
[2024-07-02 04:53] LABS: #Basophils Less than 0.03 10x3/uL (0.0-0.2); %Basophils 0.2 % (0.0-1.0); %Eosinophils 1.9 % (0.0-10.0); %Lymphocytes 5.2 % (21.0-51.0); %Monocytes 11.7 % (0.0-10.0); %Neutrophils 80.6 % (42.0-75.0); Hematocrit 39.1 % (42.0-52.0); Hemoglobin 12.3 g/dL (14.0-18.0); Mean Corpuscular HGB CONC 31.5 g/dL (32.0-36.0); Mean Corpuscular Hemoglobin 28.3 pg (27.0-31.0); Mean Corpuscular Volume 89.9 fL (78.0-98.0); Mean Platelet Volume 10.9 fL (7.4-10.4); Platelet Count 122 10x3/uL (130-400); RBC Distribution Width 16.4 % (11.5-14.5); Red Blood Cell (RBC) Count 4.35 mill/uL (4.70-6.10)
[2024-07-02 04:55] LABS: Anion Gap 9 mmol/L (10-20); BUN (Urea Nitrogen) 18 mg/dL (8.4-25.7); Calc. Creatinine Clearance 44 mL/min (70-130); Calcium 8.6 mg/dL (7.8-10.44); Carbon Dioxide 23 mmol/L (23-31); Chloride 111 mmol/L (98-107); Estimated GFR 55; Glucose 117 mg/dL (83-110); Potassium 3.8 mmol/L (3.5-5.1); Sodium 139 mmol/L (136-145)
[2024-07-02] MEDS ORDERED: Sodium Chloride 0.65% Nasal 44 ML BOT EA NARE PRN (08:11)
[2024-07-02] MEDS ORDERED: FLU (Fluad Triv) TS24-25 (65UP)/MF59C/PF 45 MCG/0.5 ML Syringe IM ONE (09:00)
[2024-07-02] MEDS: Metoprolol Tartrate 5 MG (5 mL) VIAL IVP SCH (11:20)
[2024-07-03] MEDS: Melatonin 3 MG TAB PO PRN (00:18)
[2024-07-03 06:57] LABS: Free T4 (Free Thyroxine) 1.16 ng/dL (0.70-1.48); Thyroid Stimulating Hormone 1.511 uIU/mL (0.35-4.94)
[2024-07-03] MEDS: Senokot S 8.6-50 MG TAB PO PRN (08:45)
[2024-07-03] MEDS: Ondansetron PF 4 MG/2 ML Vial IVP PRN (08:45)
[2024-07-03] MEDS: Losartan 25 MG TAB PO SCH (08:46)
[2024-07-03] MEDS: Amiodarone 200 MG TAB PO SCH (10:31)
[2024-07-03] MEDS: Insulin Lispro 100 UNIT/ML 10 ML VIAL SC PRN (12:24)
[2024-07-04 04:03] VITALS: TEMP 97.1
[2024-07-04 05:07] LABS: Anion Gap 10 mmol/L (10-20); BUN (Urea Nitrogen) 23 mg/dL (8.4-25.7); Calc. Creatinine Clearance 38 mL/min (70-130); Calcium 8.9 mg/dL (7.8-10.44); Carbon Dioxide 23 mmol/L (23-31); Chloride 107 mmol/L (98-107); Estimated GFR 45; Glucose 128 mg/dL (83-110); Sodium 136 mmol/L (136-145)
[2024-07-04] MEDS ORDERED: Lidocaine 1% PF 5 ML VIAL ONE (08:55)
[2024-07-04] MEDS ORDERED: PROPOFOL 200 MG/20 ML VIAL ONE (08:55)
[2024-07-04 12:19] VITALS: BP 130/74
== END 2024-07-04 18:03 | disposition home or self-care (01) | DRG 282 ==
LOC: SUATTDRO 15:21 → ERS 15:21 → ERHOLD 18:07 → IMCU/EMU 07-01 16:03 → 2NO 07-02 01:01
PROVIDERS: ADMIT Internal Medicine; ATTEND Internal Medicine
PROC: 4A033R1 Measurement of Arterial Saturation, Peripheral, Percutaneous Approach (ICD-10-PCS; 2024-06-30)
PROC: B24BZZ4 Ultrasonography of Heart with Aorta, Transesophageal (ICD-10-PCS; principal; 2024-07-04)
PROC: 5A2204Z Restoration of Cardiac Rhythm, Single (ICD-10-PCS; 2024-07-04)
DX: I48.0 Paroxysmal atrial fibrillation (principal); I21.A1 Myocardial infarction type 2; I95.9 Hypotension, unspecified; E03.9 Hypothyroidism, unspecified; E78.5 Hyperlipidemia, unspecified; I25.10 Atherosclerotic heart disease of native coronary artery without angina pectoris; N18.30 Chronic kidney disease, stage 3 unspecified; I12.9 Hypertensive chronic kidney disease with stage 1 through stage 4 chronic kidney disease, or unspecified chronic kidney disease; E11.22 Type 2 diabetes mellitus with diabetic chronic kidney disease; Z88.8 Allergy status to other drugs, medicaments and biological substances; Z79.899 Other long term (current) drug therapy; Z98.890 Other specified postprocedural states; Z96.642 Presence of left artificial hip joint; Z79.82 Long term (current) use of aspirin; Z79.4 Long term (current) use of insulin; Z79.01 Long term (current) use of anticoagulants
CPT/HCPCS: 36415; 36416; 36600; 71045; 80048; 80053; 82805; 83735; 83880; 84439; 84443; 84484; 85025; 85610; 85730; 92960; 93005; 93010; 93312; 94760; 96374; 96375; J0282; J1160; J1815; J2405; J2704; J7070

== ENCOUNTER 2025-07-21 11:19 | Emergency (ER) | payer MEDICARE ==
[2025-07-21 13:15] LABS: Bacteria/HPF None Seen HPF (None Seen); CAUTI Indications for Culture Alt mental st,lethar; Glucose, Urine (Dipstick) Normal (Negative); Leukocyte Negative Leu/uL (Negative); Protein, Urine (Dipstick) Negative (Neg-Trace); RBC/HPF None Seen HPF (0-3); Specific Gravity, Urine 1.010 (1.002-1.036); WBC/HPF 0-3 HPF (0-3)
[2025-07-21 13:16] LABS: Urine Culture Reflex No No
[2025-07-21 13:47] LABS: #Basophils 0.03 10x3/uL (0.0-0.2); #Eosinophils 0.12 10x3/uL (0.0-0.7); #Monocytes 0.72 10x3/uL (0.11-0.59); #Neutrophils 5.59 10x3/uL (1.40-6.50); %Basophils 0.4 % (0.0-1.0); %Eosinophils 1.7 % (0.0-10.0); %Lymphocytes 10.1 % (21.0-51.0); %Monocytes 10.0 % (0.0-10.0); %Neutrophils 77.4 % (42.0-75.0); Hematocrit 44.4 % (42.0-52.0); Hemoglobin 13.9 g/dL (14.0-18.0); Mean Corpuscular Hemoglobin 27.1 pg (27.0-31.0); Mean Corpuscular Volume 86.5 fL (78.0-98.0); Platelet Count 109 10x3/uL (130-400); Red Blood Cell (RBC) Count 5.13 mill/uL (4.70-6.10); White Blood Cell (WBC) Count 7.22 10x3/uL (4.8-10.8)
[2025-07-21 13:57] LABS: ALT (SGPT) 16 U/L (Less than 45); AST (SGOT) 17 U/L (11-34); Albumin 3.8 g/dL (3.1-4.5); Alkaline Phosphatase 73 U/L (40-110); Anion Gap 14 mmol/L (10-20); BUN (Urea Nitrogen) 35 mg/dL (8.4-25.7); Bilirubin, Total 0.8 mg/dL (0.3-1.2); Calc. Creatinine Clearance 0 mL/min (70-130); Calcium 8.9 mg/dL (7.8-10.44); Carbon Dioxide 24 mmol/L (23-31); Chloride 105 mmol/L (98-107); Globulin 2.6 g/dL (2.4-3.5); Glucose 117 mg/dL (83-110); Potassium 4.1 mmol/L (3.5-5.1); Sodium 139 mmol/L (136-145)
== END 2025-07-21 14:29 | disposition home or self-care (01) ==
LOC: ERS 11:19
DX: R03.1 Nonspecific low blood-pressure reading (principal); E03.9 Hypothyroidism, unspecified; I48.91 Unspecified atrial fibrillation; I12.9 Hypertensive chronic kidney disease with stage 1 through stage 4 chronic kidney disease, or unspecified chronic kidney disease; E11.22 Type 2 diabetes mellitus with diabetic chronic kidney disease; N18.9 Chronic kidney disease, unspecified; I25.10 Atherosclerotic heart disease of native coronary artery without angina pectoris; E78.5 Hyperlipidemia, unspecified; Z79.899 Other long term (current) drug therapy; Z79.01 Long term (current) use of anticoagulants; Z79.84 Long term (current) use of oral hypoglycemic drugs; Z79.890 Hormone replacement therapy
CPT/HCPCS: 80053; 81001; 85025; 99284